=== PATIENT | male | born 1995 ===

== ENCOUNTER 2024-11-20 16:41 | Outpatient (REF) | payer BC, SELFPAY ==
[2024-11-20 21:57] LABS: HCT 46.2 % (40.0-50.0); HGB 15.6 g/dL (13.5-17.5); MCH 27.3 pg (27.0-33.0); MCHC 33.8 % (32.0-36.0); MCV 81 fL (80-95); MPV 11.6 fL (8.0-11.0); Platelet Count 280 10^3/uL (130-400); RBC 5.71 10^6/uL (4.36-5.78); RDW 12.1 % (11.8-14.1); RDW-SD 34.9 fL; WBC 10.72 10^3/uL (4.4-10.8)
[2024-11-20 22:01] LABS: ALT 47 U/L (16-63); AST 30 U/L (15-37); Albumin 4.3 g/dL (3.4-5.0); Alkaline Phosphatase 106 U/L (46-116); Anion Gap 8.6 mmol/L (3-11); BUN 11 mg/dL (7-18); Bilirubin, Total 0.49 mg/dL (0.2-1.0); CO2 27.4 mmol/L (21.0-32.0); CREATININE 0.8 mg/dL (0.70-1.30); Calcium 9.6 mg/dL (8.5-10.1); Calculated LDL 114 mg/dL (<100); Chloride 106 mmol/L (98-107); Cholesterol 212 mg/dL (<200); Estimated GFR 121.34 (mL/min/1.73m2); Glucose 106 mg/dL (74-106); HDL Cholesterol 39 mg/dL (40-60); Potassium 3.6 mmol/L (3.5-5.1); Sodium 142 mmol/L (136-145); Total Protein 8.1 g/dL (6.4-8.2); Triglyceride 299 mg/dL (<150)
[2024-11-20 22:21] LABS: Hemoglobin A1C 5.8 % (<5.7)
== END 2024-11-20 16:42 | disposition home or self-care (01) ==
LOC: NCHCN 16:41
PROVIDERS: PCP Internal Medicine; Visit Provider Family Medicine
DX: Z13.220 Encounter for screening for lipoid disorders (principal); Z13.1 Encounter for screening for diabetes mellitus
CPT/HCPCS: 80053; 80061; 85027; 83036